=== PATIENT | female | born 1970 | race Caucasian/White ===

== ENCOUNTER → 2017-11-27 | Outpatient (CLI) | payer OTHER ==
--- NOTE | 2017-11-27 14:31 | PCVCIMAG ---
APPROVED REPORT Study performed: 11/27/2017 12:56:50 EXAM: Comprehensive 2D, Doppler, and color-flow Echocardiogram Patient Location: Echo lab Status: routine BSA: 1.53 HR: 61 bpmBP: 102/72 mmHg Rhythm: NSR Other Information Study Quality: Good Risk Factors: Cardiac Risk Factors: Hyperlipidemia Indications Murmur Palpitations 2D Dimensions LVEF(%): 63.81 (>50%) IVSd: 7.67 (7-11mm)LVOT Diam: 20.00 (18-24mm) LVDd: 39.78 mm PWd: 9.31 (7-11mm)Ascending Ao: 44.32 (22-36mm) LVDs: 26.17 (25-40mm) Left Atrium: 24.79 (27-40mm) Aortic Root: 33.36 mm Vazquez's LVEF: 63.81 % Volumes Left Atrial Volume (Systole) Single Plane 4CH: 27.04 mLSingle Plane 2CH: 26.28 mL LA ESV Index: 18.00 mL/m2 Aortic Valve AoV Peak Lee.: 1.32 m/s AO Peak Gr.: 7.02 mmHgLVOT Max P.75 mmHg LVOT Max V: 0.82 m/s LILLIANA Vmax: 1.85 cm2 Mitral Valve E/A Ratio: 1.1 MV Decel. Time: 256.78 ms MV E Max Lee.: 0.64 m/s MV A Lee.: 0.56 m/s IVRT: 48.44 ms TDI E/Lateral E': 5.82E/Medial E': 7.11 Medial E' Lee.: 0.09 m/s Lateral E' Lee.: 0.11 m/s Pulmonary Valve PV Peak Lee.: 0.75 m/sPV Peak Gr.: 2.24 mmHg Pulmonary Vein P Vein S: 0.48 m/sP Vein A: 0.26 m/s P Vein D: 0.43 m/sP Vein A Dur.: 93.4 msec P Vein S/D Ratio: 1.12 Tricuspid Valve TR Peak Lee.: 1.93 m/sRAP Estimate: 7.00 mmHg TR Peak Gr.: 14.97 mmHg PA Pressure: 22.00 mmHg Left Ventricle The left ventricle is normal size. There is normal LV segmental wall motion. There is normal left ventricular wall thickness. Left ventricular systolic function is normal. The left ventricular ejection fraction is within the normal range. LVEF is 60-65%. The left ventricular diastolic function is normal. Right Ventricle The right ventricle is normal size. The right ventricular systolic function is normal. Atria The left atrium size is normal. The right atrium size is normal. Aortic Valve Aortic valve is bicuspid. Trace aortic regurgitation. There is no aortic valvular stenosis. Mitral Valve The mitral valve is normal in structure. There is no mitral valve regurgitation noted. No evidence of mitral valve stenosis. Tricuspid Valve The tricuspid valve is normal in structure. Trace tricuspid regurgitation.Pulmonary artery pressure is 25 mmHg. Pulmonic Valve The pulmonary valve is normal in structure. Trace pulmonic regurgitation. Great Vessels The aortic root is normal in size. The ascending aorta is dilated at 4.4 cm. IVC is normal in size and collapses >50% with inspiration. Pericardium There is no pericardial effusion. <Conclusion> Left ventricular systolic function is normal. There is normal LV segmental wall motion. LVEF is 60-65%. Normal diastolic function Aortic valve is bicuspid. Trace aortic regurgitation, no stenosis. The mitral valve is normal in structure. No mitral valve regurgitation noted. The ascending aorta is dilated at 4.4 cm. Pulmonary artery pressure of 15mmHg There is no pericardial effusion.
--- NOTE | 2017-11-27 16:23 | PCVCIMAG ---
APPROVED REPORT Patient Location: Echo lab Room #: Stress Nurse: Zuleika Newton RN Indication: Dyspnea, Palpitations The patient exercised according to the SYLVIE protocol for 13:15 min:s, achieving a work level of max METS: 17.2. The resting heart rate of 57 heena to a maximal heart rate of 173 bpm. This value represents 100% of the maximal age-predicted heart rate. The resting blood pressure of 102/72 mmHg. heena to a maximum blood pressure of 136/74 mmHg. The exercise test was stopped due to maximal effort and fatigue. Resting EKG: Sinus bradycardia with sinus arrhythmia Resting electrocardiogram: No ST segment shifts diagnostic of myocardial ischemia. Rare, isolated premature ventricular complexes. Conclusion 1. Maximal treadmill exercise study negative for exercise-induced ischemia. 2. No significant dysrhythmias. Isolated PVC 3. The study was associated with good exercise capacity (17.2 METS) 4. Low Pereira treadmill score for ischemic events
== END | disposition home or self-care (01) ==
LOC: PCVCIMAG 15:38
PROVIDERS: ATTEND Internal Medicine
DX: I49.3 Ventricular premature depolarization (principal); R06.00 Dyspnea, unspecified; R00.2 Palpitations; R01.1 Cardiac murmur, unspecified
CPT/HCPCS: 93017; 93306

== ENCOUNTER → 2018-06-01 | Outpatient (CLI) | payer OTHER ==
--- NOTE | 2018-06-01 13:55 | PCVCIMAG ---
APPROVED REPORT Study performed: 06/01/2018 13:00:58 EXAM: Comprehensive 2D, Doppler, and color-flow Echocardiogram Patient Location: Echo lab Status: routine BSA: 1.42 HR: 64 bpmBP: 120/86 mmHg Rhythm: NSR Other Information Study Quality: Excellent Indications PVC's, Chest Pain, Bicuspid Aortic Valve, Dilated Ascending Aorta 2D Dimensions IVSd: 11.57 (7-11mm)LVOT Diam: 23.89 (18-24mm) LVDd: 36.58 mm PWd: 9.35 (7-11mm)Ascending Ao: 47.69 (22-36mm) LVDs: 29.71 (25-40mm) Left Atrium: 24.73 (27-40mm) Aortic Root: 44.01 mm LV Single Plane 4CH: 66.04 % LV Single Plane 2CH: 66.86 % Biplane EF: 66.4 % Volumes Left Atrial Volume (Systole) Single Plane 4CH: 23.06 mLSingle Plane 2CH: 30.82 mL LA ESV Index: 23.00 mL/m2 Aortic Valve AoV Peak Lee.: 1.55 m/s AO Peak Gr.: 9.60 mmHgLVOT Max P.32 mmHg LVOT Max V: 0.76 m/s LILLIANA Vmax: 2.20 cm2 AI Vmax: 2.65 m/s AI Clarendon: 1.07 m/s2 AI PHT: 716.43 ms Mitral Valve E/A Ratio: 1.4 MV Decel. Time: 198.80 ms MV E Max Lee.: 0.72 m/s MV A Lee.: 0.51 m/s TDI E/Lateral E': 6.55E/Medial E': 7.20 Medial E' Lee.: 0.10 m/s Lateral E' Lee.: 0.11 m/s Pulmonary Valve PV Peak Gr.: 1.36 mmHg Pulmonary Vein P Vein S: 0.48 m/sP Vein A: 0.29 m/s P Vein D: 0.48 m/sP Vein A Dur.: 69.2 msec P Vein S/D Ratio: 1.00 Tricuspid Valve TR Peak Lee.: 2.03 m/s TR Peak Gr.: 16.50 mmHg Left Ventricle The left ventricle is normal size. There is normal LV segmental wall motion. There is normal left ventricular wall thickness. Left ventricular systolic function is normal. The left ventricular ejection fraction is within the normal range. LVEF is 60-65%. The left ventricular diastolic function is normal. Right Ventricle The right ventricle is normal size. The right ventricular systolic function is normal. Atria The left atrium size is normal. The right atrium size is normal. Aortic Valve Biscuspid aortic valve. No aortic regurgitation is present. There is no aortic valvular stenosis. Mitral Valve The mitral valve is normal in structure. Trace mitral regurgitation. No evidence of mitral valve stenosis. Tricuspid Valve The tricuspid valve is normal in structure. Trace to mild tricuspid regurgitation. Pulmonary artery pressure is 24mmHg. Pulmonic Valve The pulmonary valve is normal in structure. There is no pulmonic valvular regurgitation. Great Vessels The aortic root is normal in size. The ascending aorta is dilated measuring up to 4.8cm. IVC is normal in size and collapses >50% with inspiration. Pericardium There is no pericardial effusion. <Conclusion> Left ventricular systolic function is normal. There is normal LV segmental wall motion. LVEF is 60-65%. Normal diastolic function Biscuspid aortic valve. No aortic regurgitation or stenosis The mitral valve is normal in structure. Trace mitral regurgitation. Trace to mild tricuspid regurgitation. Pulmonary artery pressure of 24mmHg. The ascending aorta is dilated (4.8cm). There is no pericardial effusion.
== END | disposition home or self-care (01) ==
LOC: PCVCIMAG 12:54
PROVIDERS: ATTEND Internal Medicine
DX: I49.3 Ventricular premature depolarization (principal); I71.6 Thoracoabdominal aortic aneurysm, without rupture; R01.1 Cardiac murmur, unspecified; R07.2 Precordial pain; Q23.1 Congenital insufficiency of aortic valve
CPT/HCPCS: 93306